=== PATIENT | female | born 1995 | race Caucasian/White ===

== ENCOUNTER 2018-05-18 08:34 | Emergency (ER) | payer MEDICARE, MEDICAID, SELFPAY ==
[2018-05-18 08:38] VITALS: BP 133/80; PULSE 88; RESP 18; TEMP 36.7; O2SAT 98
--- NOTE | 2018-05-18 08:59 | W.ED.GENAD ---
Discharge Plan Disposition Patient Disposition: HOME Condition: Improving Discharge Details Chief Complaint: RespSymp Clinical Impression: Acute bronchitis Primary Care Provider: Brittney,Local ED Provider: Sunny Chapman Home Meds and New Rx's Prescriptions: New azithromycin 250 mg tablet See Rx Instructions .ROUTE .COMPLEX Qty: 6 RF: 0 dextromethorphan-guaifenesin 10-100 mg/5 mL liquid 10 ml PO Q4H PRN (Reason: cough) Qty: 120 RF: 0 No Action nitrofurantoin macrocrystal [Macrodantin] 100 MG capsule 100 mg PO BID Qty: 10 RF: 0 Discharge Instructions Instructions: Acute Bronchitis (ED) Additional Instructions: Home to rest today. Small, frequent sips of fluids and/or popsicles to maintain hydration. Tylenol 650 mg every 6 hours as needed for aches, pains and fever. Please take antibiotics as prescribed. May use cough syrup as needed for persistent coughing. Follow-up with regular doctor if not improving in 3-5 days time Medical Decision Making 22-year-old female presents with 10 days of upper respiratory illness. She arrives with her guardian ill-appearing and that the exam is notable for persistent cough and conjunctivitis. Diagnosis includes viral syndrome, bronchitis, influenza, and pneumonia. Must exclude mono and strep given her exam as well. Patient had IV access established given fluid bolus, ketorolac, albuterol updraft. She improved with these interventions. Her chest x-ray is without focal infiltrate, strep and mono testing negative and remainder of labs reassuring. I do feel she has an atypical bronchitis and will treat with a course of azithromycin. I will improve her antitussive management at home and discussed home management as well as follow-up and return precautions with patient and her guardian at the bedside. Lab Data Lab results reviewed: Yes I reviewed the patient's lab results. Laboratory Results - last 24 hr 05/18/18 05/18/18 09:30 09:30 Sodium 139 Potassium 4.4 Chloride 103 Carbon Dioxide 26.5 Anion Gap 9.5 BUN 12 Creatinine 0.72 Estimated GFR/1.73 m2 >= 60.00 Glucose 100 Calcium 9.0 Total Bilirubin 0.4 AST 40 H ALT 37 Alkaline Phosphatase 100 Total Protein 7.7 Albumin 3.8 Monoscreen Negative HPI General Mode of arrival: ambulatory. Date/Time Provider Initiated Documentation: 05/18/18 08:45. Limitations to Documentation: no limitations. Information obtained by: patient and family. History of Present Illness 22 year old F presents to the emergency department with the chief complaint of Cough and fever, described as moderate, Quality is described as aching, and is localized to the chest. Patient reports no radiation. Patient started experiencing this day(s) and it has been constant. No relieving factors improve symptom(s), No exacerbating factors reported . Patient notes cough, fever/chills and loss of appetite. HPI Narrative: 22-year-old female with 10 days of cough, congestion, production of sputum, now with bilateral injected conjunctiva, fever and chills today. No recent travels or known sick contacts. She is otherwise healthy female. Related Data Home Medications Medication Instructions Recorded Confirmed nitrofurantoin macrocrystal 100 mg PO BID #10 capsule 04/21/16 05/18/18 [Macrodantin] azithromycin See Rx Instructions .ROUTE 05/18/18 .COMPLEX #6 tab dextromethorphan-guaifenesin 10 ml PO Q4H PRN #120 ml 05/18/18 Previous Rx's Medication Instructions Recorded nitrofurantoin macrocrystal 100 mg PO BID #10 capsule 04/21/16 [Macrodantin] azithromycin See Rx Instructions .ROUTE 05/18/18 .COMPLEX #6 tab dextromethorphan-guaifenesin 10 ml PO Q4H PRN #120 ml 05/18/18 Allergies Allergy/AdvReac Type Severity Reaction Status Date / Time No Known Allergies Allergy Unverified 04/21/16 18:21 General Stated Complaint: RespSymp JACKIE: 4 Review of Systems Review of Systems 8 systems reviewed and otherwise negative [facility] Social History Smoking/Tobacco Use Status: Never Exam Narrative Exam Narrative: GEN: awake, alert, oriented 3. Pleasant, well groomed, interactive. HEAD: Normocephalic, atraumatic ENT: Mucous membranes moist, oropharynx bilaterally swollen and erythematous tonsils with scant exudate, External ear exam unremarkable EYES: PERRL, EOMI, bilateral conjunctiva injected NECK: Full ROM, no JIA, no menigismus CHEST/RESP: Nontender, clear to auscultation bilateral, no wheeze/rhonchi/rales CARDIOVASCULAR: RRR, no murmur, rub minerva. 2+ Rad pulse bilateral ABDOMEN: Soft, nontender, no mass. +Bowel sounds EXT: Full ROM, no edema, no rash Neuro: Grossly normal neurologic exam, conversant, interactive. Psych: Speech fluent, thoughts congruent, affect normal Course Vital Signs Temperature 36.7 C 05/18/18 08:38 Pulse 88 05/18/18 08:38 Respiratory Rate 18 05/18/18 08:38 Blood Pressure 133/80 05/18/18 08:38 Pulse Oximetry 98 05/18/18 08:38 Temperature 36.7 C 05/18/18 08:38 Temperature Source Temporal Artery Scan 05/18/18 08:38 Pulse 88 05/18/18 08:38 Respiratory Rate 18 05/18/18 08:38 Respiratory Effort Non-Labored 05/18/18 08:46 Blood Pressure 133/80 05/18/18 08:38 Pulse Oximetry 98 05/18/18 08:38 Oxygen Delivery Method Room Air 05/18/18 08:38 Oxygen Flow Rate 0 05/18/18 08:38 Pain Level 3 05/18/18 08:38
--- NOTE | 2018-05-18 09:03 | ED.GENADUL_ITS ---
Discharge Plan Disposition Patient Disposition: HOME Condition: Improving Discharge Details Chief Complaint: RespSymp Clinical Impression: Acute bronchitis Primary Care Provider: Brittney,Local ED Provider: Sunny Chapman Home Meds and New Rx's Prescriptions: New azithromycin 250 mg tablet See Rx Instructions .ROUTE .COMPLEX Qty: 6 RF: 0 dextromethorphan-guaifenesin 10-100 mg/5 mL liquid 10 ml PO Q4H PRN (Reason: cough) Qty: 120 RF: 0 No Action nitrofurantoin macrocrystal [Macrodantin] 100 MG capsule 100 mg PO BID Qty: 10 RF: 0 Discharge Instructions Instructions: Acute Bronchitis (ED) Additional Instructions: Home to rest today. Small, frequent sips of fluids and/or popsicles to maintain hydration. Tylenol 650 mg every 6 hours as needed for aches, pains and fever. Please take antibiotics as prescribed. May use cough syrup as needed for persistent coughing. Follow-up with regular doctor if not improving in 3-5 days time Medical Decision Making 22-year-old female presents with 10 days of upper respiratory illness. She arrives with her guardian ill-appearing and that the exam is notable for persistent cough and conjunctivitis. Diagnosis includes viral syndrome, bronchitis, influenza, and pneumonia. Must exclude mono and strep given her exam as well. Patient had IV access established given fluid bolus, ketorolac, albuterol updraft. She improved with these interventions. Her chest x-ray is without focal infiltrate, strep and mono testing negative and remainder of labs reassuring. I do feel she has an atypical bronchitis and will treat with a course of azithromycin. I will improve her antitussive management at home and discussed home management as well as follow-up and return precautions with patient and her guardian at the bedside. Lab Data Lab results reviewed: Yes I reviewed the patient's lab results. Laboratory Results - last 24 hr 05/18/18 05/18/18 09:30 09:30 Sodium 139 Potassium 4.4 Chloride 103 Carbon Dioxide 26.5 Anion Gap 9.5 BUN 12 Creatinine 0.72 Estimated GFR/1.73 m2 >= 60.00 Glucose 100 Calcium 9.0 Total Bilirubin 0.4 AST 40 H ALT 37 Alkaline Phosphatase 100 Total Protein 7.7 Albumin 3.8 Monoscreen Negative HPI General Mode of arrival: ambulatory . Date/Time Provider Initiated Documentation: 05/18/18 08:45 . Limitations to Documentation: no limitations . Information obtained by: patient and family . History of Present Illness 22 year old F presents to the emergency department with the chief complaint of Cough and fever, described as moderate, Quality is described as aching, and is localized to the chest. Patient reports no radiation. Patient started experiencing this day(s) and it has been constant. No relieving factors improve symptom(s), No exacerbating factors reported . Patient notes cough, fever/chills and loss of appetite. HPI Narrative: 22-year-old female with 10 days of cough, congestion, production of sputum, now with bilateral injected conjunctiva, fever and chills today. No recent travels or known sick contacts. She is otherwise healthy female. Related Data Home Medications Medication Instructions Recorded Confirmed nitrofurantoin macrocrystal 100 mg PO BID #10 capsule 04/21/16 05/18/18 [Macrodantin] azithromycin See Rx Instructions .ROUTE 05/18/18 .COMPLEX #6 tab dextromethorphan-guaifenesin 10 ml PO Q4H PRN #120 ml 05/18/18 Previous Rx's Medication Instructions Recorded nitrofurantoin macrocrystal 100 mg PO BID #10 capsule 04/21/16 [Macrodantin] azithromycin See Rx Instructions .ROUTE 05/18/18 .COMPLEX #6 tab dextromethorphan-guaifenesin 10 ml PO Q4H PRN #120 ml 05/18/18 Allergies Allergy/AdvReac Type Severity Reaction Status Date / Time No Known Allergies Allergy Unverified 04/21/16 18:21 General Stated Complaint: RespSymp JACKIE: 4 Review of Systems Review of Systems 8 systems reviewed and otherwise negative [facility] Social History Smoking/Tobacco Use Status: Never Exam Narrative Exam Narrative: GEN: awake, alert, oriented 3. Pleasant, well groomed, interactive. HEAD: Normocephalic, atraumatic ENT: Mucous membranes moist, oropharynx bilaterally swollen and erythematous tonsils with scant exudate, External ear exam unremarkable EYES: PERRL, EOMI, bilateral conjunctiva injected NECK: Full ROM, no JIA, no menigismus CHEST/RESP: Nontender, clear to auscultation bilateral, no wheeze/rhonchi/rales CARDIOVASCULAR: RRR, no murmur, rub minerva. 2+ Rad pulse bilateral ABDOMEN: Soft, nontender, no mass. +Bowel sounds EXT: Full ROM, no edema, no rash Neuro: Grossly normal neurologic exam, conversant, interactive. Psych: Speech fluent, thoughts congruent, affect normal Course Vital Signs Temperature 36.7 C 05/18/18 08:38 Pulse 88 05/18/18 08:38 Respiratory Rate 18 05/18/18 08:38 Blood Pressure 133/80 05/18/18 08:38 Pulse Oximetry 98 05/18/18 08:38 Temperature 36.7 C 05/18/18 08:38 Temperature Source Temporal Artery Scan 05/18/18 08:38 Pulse 88 05/18/18 08:38 Respiratory Rate 18 05/18/18 08:38 Respiratory Effort Non-Labored 05/18/18 08:46 Blood Pressure 133/80 05/18/18 08:38 Pulse Oximetry 98 05/18/18 08:38 Oxygen Delivery Method Room Air 05/18/18 08:38 Oxygen Flow Rate 0 05/18/18 08:38 Pain Level 3 05/18/18 08:38
[2018-05-18] MEDS: Normal Saline 1,000 ML 1000 ML IV (09:25)
[2018-05-18] MEDS: Albuterol/Ipratropium 3 ML UPD VIAL UPD (09:25)
[2018-05-18] MEDS: Ketorolac 15 MG/ML VIAL IVP (09:25)
[2018-05-18 09:37] LABS: Abs Immature Grans 0.03 k/cumm (0.0-0.09); HCT 42.5 % (36.0-46.0); HGB 14.3 g/dL (12.0-15.5); Mean Corp. HGB Concentration 33.6 g/dL (32.0-36.0); Mean Corpuscular Hemoglobin 28.9 pg (27.0-33.0); Mean Corpuscular Volume 85.9 fL (80-95); Mean Platelet Volume 10.1 fL (8.0-11.0); Platelet Count 320 x1000/uL (130-400); RBC 4.95 m/cumm (4.00-5.20); RBC Distribution Width 13.2 % (11.7-14.6); White Blood Cell Count 10.31 k/cumm (4.4-10.8)
[2018-05-18 09:45] LABS: Mono Screening Negative (Negative)
[2018-05-18 09:53] LABS: ALT 37 U/L (12-78); AST 40 U/L (15-37); Albumin 3.8 g/dL (3.4-5.0); Alkaline Phosphatase 100 U/L (46-116); Anion Gap 9.5 mmol/L (3-11); BUN 12 mg/dL (7-18); Bilirubin, Total 0.4 mg/dL (0.2-1.0); CO2 26.5 mmol/L (21.0-32.0); CREATININE 0.72 mg/dL (0.55-1.02); Chloride 103 mmol/L (98-107); Glucose 100 mg/dL (70-100); Potassium 4.4 mmol/L (3.5-5.1); Sodium 139 mmol/L (136-145); Total Protein 7.7 g/dL (6.4-8.2)
[2018-05-18 10:01] LABS: Absolute Eosinophil Count 0.21 k/cumm (0.0-0.7); Absolute Lymphocyte Count 2.17 k/cumm (1.2-3.4); Absolute Monocyte Count 0.62 k/cumm (0.11-0.7); Absolute Neutrophil Count 7.32 k/cumm (1.2-6.7); Atypical Lymphocytes % 2
[2018-05-18 10:02] LABS: Diff Comment Manual Differential; RBC Morphology Normal
--- NOTE | 2018-05-18 10:16 | DI.RAD_ITS ---
SYMPTOM/DIAGNOSIS: COUGH PA AND LATERAL CHEST: The heart is normal in size. The lungs are clear. The mediastinal structures and pleura appear intact. CONCLUSION: Normal chest.
== END 2018-05-18 10:25 | disposition home or self-care (01) ==
PROVIDERS: Emergency Provider Emergency Medicine
DX: J20.9 Acute bronchitis, unspecified (principal)
CPT/HCPCS: 36415; 80053; 87449; 87880; 94640; 96361; 96374; 99284; 71046; 85025; 86308; 87081; J1885; J7620

== ENCOUNTER 2021-12-25 15:57 | Emergency (ER) | payer MEDICARE, MEDICAID, SELFPAY ==
[2021-12-25 16:03] VITALS: BP 143/93; PULSE 127; RESP 18; TEMP 37.2; O2SAT 97
[2021-12-25] MEDS: Normal Saline 1,000 ML 1000 ML IV (17:10)
[2021-12-25] MEDS: Ketorolac 15 MG/ML VIAL IVP (17:17)
[2021-12-25] MEDS: Dexamethasone 4 MG/ML VIAL IVP (17:19)
[2021-12-25] MEDS: Acetaminophen 325 MG TAB 650 MG PO (17:20)
[2021-12-25 17:29] LABS: Source Nasal/Nares
[2021-12-25 17:35] LABS: Mono Screening Negative (Negative)
--- NOTE | 2021-12-25 17:35 | ED.GENADUL_ITS ---
Discharge Plan Disposition Patient Disposition: HOME Condition: Stable Discharge Details Clinical Impression: COVID-19 Primary Care Provider: None,None ED Provider: Beatris Smith Discharge Instructions Instructions: Viral Syndrome (ED) Additional Instructions: You have COVID-19, you should isolate completely from others for the next 5 days and if your symptoms resolved and you are fever free you may wear a mask on public for the remaining 5 days After 10-day period of time if you are fever free and asymptomatic, you are able to return to normal activities May take ibuprofen and Tylenol as needed for pain complaints keep yourself hydrated, regular fluid, popsicles at least 8, 80z glasses of water daily Medical Decision Making Patient appears symptomatically improved She still mildly tachycardic at 106 at home discharge home She is maintaining secretions Her COVID swab is positive Her strep Swab is negative Her vitals are otherwise stable Blood pressure 130/80 Isolation precautions discussed Return precautions discussed Discharged home in stable condition Medical Records Medical records reviewed: Yes I reviewed the patient's medical records. Lab Data Lab results reviewed: Yes I reviewed the patient's lab results. HPI General Date/Time Provider Initiated Documentation: 12/25/21 16:06 . HPI Narrative: This 26-year-old female presents with report of sore throat for the past 24 hours. She has pain with swallowing. She has had chills. She is unsure if she had a fever. She did take ibuprofen at 12:00 today. Denies any chance of . Denies stiff neck or headache. Denies known sick contacts or rashes. Denies any tick bite. Call for shortness of breath. Related Data Allergies Allergy/AdvReac Type Severity Reaction Status Date / Time No Known Allergies Allergy Unverified 12/25/21 16:07 General Stated Complaint: Sorethroat JACKIE: 3 Review of Systems All systems reviewed & are unremarkable except as noted in HPI and below PFSH All Active Problems (Updated 12/25/21 @ 18:50 by SAAD Dillard) COVID-19 (Acute) Social History Smoking/Tobacco Use Status: Never Smoking risk assessment performed?: Yes Alcohol Intake: current Alcohol Intake frequency: holidays/special occasions only Drug use: Never Substance use type: does not use Do you feel safe at home: Yes Do you feel safe in your relationship?: Yes Exam Const General: cooperative, comfortable and no acute distress Orientation: alert and oriented x3 HENMT Other: Uvula midline Tonsillitis, no trismus, maintaining secretions, no abscess visualized Neck Other: no meningismus Resp Effort & Inspection: normal respiratory effort Cardio Rate: tachycardic Rhythm: regular rhythm GI Inspection: normal to inspection Skin General skin exam: no rashes or lesions noted Neuro General: patient alert and patient oriented x3 Course Vital Signs Vital signs: Vital Signs Temperature 37.2 C 12/25/21 16:03 Pulse 127 H 12/25/21 16:03 Respiratory Rate 18 12/25/21 16:03 Blood Pressure 143/93 H 12/25/21 16:03 Pulse Oximetry 97 12/25/21 16:03 Temperature 37.2 C 12/25/21 16:03 Temperature Source Temporal Artery Scan 12/25/21 16:03 Pulse 127 H 12/25/21 16:03 Respiratory Rate 18 12/25/21 16:03 Respiratory Effort Non-Labored 12/25/21 16:08 Blood Pressure 143/93 H 12/25/21 16:03 Blood Pressure Position Sitting 12/25/21 16:03 Pulse Oximetry 97 12/25/21 16:03 Oxygen Delivery Method Room Air 12/25/21 16:03 Oxygen Flow Rate 0 12/25/21 16:03 Lab/Test Results Lab/Test Results: 12/25/21 16:10 Tonsil - Not Specified Group A Streptococcus Culture - Pending Laboratory Tests Range/Units 12/25/21 12/25/21 17:10 17:10 COVID-19 Source Nasal/Nares Monoscreen (Negative) Negative POC Strep Test-SOTO(Rapid) Start: 12/25/21 16:13 Freq: Status: Active Protocol: Document 12/25/21 16:15 CAB (Rec: 12/25/21 16:34 CAB [id number]) Strep test-SOTO(Rapid)-POC POC-Strep test-SOTO (Rapid) Negative POC-Strep test-SOTO (Rapid) Negative
[2021-12-25 18:15] LABS: COVID-19 PCR POSITIVE (Negative)
[2021-12-25 19:03] VITALS: BP 145/112; PULSE 113; RESP 16; TEMP 36.7; O2SAT 97
== END 2021-12-25 19:09 | disposition home or self-care (01) ==
PROVIDERS: Emergency Provider Physician Assistant
DX: U07.1 COVID-19 (principal); R00.0 Tachycardia, unspecified
CPT/HCPCS: 36415; 87635; 87880; 96361; 96374; 96375; 99284; 86308; 87081; J1100; J1885

== ENCOUNTER → 2024-11-06 08:48 | Outpatient (BNVA) | payer MEDICARE, MEDICAID, SELFPAY | PROVIDERS: PCP Student in an Organized Health Care Education/Training Program; Referring Provider Student in an Organized Health Care Education/Training Program; Visit Provider Podiatrist | DX: B07.0 Plantar wart (principal); M79.671 Pain in right foot; L84 Corns and callosities | CPT/HCPCS: 17110 ==

== ENCOUNTER → 2024-12-25 09:37 | Outpatient (BNVA) | payer MEDICARE, MEDICAID, SELFPAY | PROVIDERS: PCP Student in an Organized Health Care Education/Training Program; Referring Provider Student in an Organized Health Care Education/Training Program; Visit Provider Podiatrist | DX: L84 Corns and callosities (principal); B07.0 Plantar wart; M79.671 Pain in right foot | CPT/HCPCS: 17110 ==

== ENCOUNTER → 2025-02-05 09:05 | Outpatient (BNVA) | payer MEDICARE, MEDICAID, SELFPAY | PROVIDERS: PCP Student in an Organized Health Care Education/Training Program; Referring Provider Student in an Organized Health Care Education/Training Program; Visit Provider Podiatrist | DX: B07.0 Plantar wart (principal); M79.671 Pain in right foot; L84 Corns and callosities | CPT/HCPCS: 17110 ==

== ENCOUNTER → 2025-03-26 09:06 | Outpatient (BNVA) | payer MEDICARE, MEDICAID, SELFPAY | PROVIDERS: PCP Student in an Organized Health Care Education/Training Program; Referring Provider Student in an Organized Health Care Education/Training Program; Visit Provider Podiatrist | DX: B07.0 Plantar wart (principal); M79.671 Pain in right foot; L84 Corns and callosities | CPT/HCPCS: 17110 ==